=== PATIENT | male | born 1950 | race Caucasian/White ===

== ENCOUNTER 2021-07-28 10:24 | Emergency (ER) | payer MEDICARE ==
[~2021-07-28] VITALS: Ht 180.3 cm; Wt 96.6 kg
[2021-07-28] MEDS ORDERED: NOVOLOG100 UNIT/2 SUBQ (10:36)
[2021-07-28] MEDS ORDERED: LEVEMIR FL100 UNIT/2 SUBQ (10:36)
[2021-07-28] MEDS ORDERED: KEPPRA1000 MG PO (10:37)
[2021-07-28] MEDS ORDERED: ATORVASTATIN CA80 MG PO (10:37)
[2021-07-28] MEDS ORDERED: ARICEPT10 M1 PO (10:37)
[2021-07-28] MEDS ORDERED: NORVASC10 MG PO (10:37)
[2021-07-28] MEDS ORDERED: CARVEDILOL25 MG PO (10:37)
[2021-07-28] MEDS ORDERED: ZESTRIL40 MG PO (10:38)
[2021-07-28] MEDS ORDERED: METFORMIN HCL500 MG PO (10:38)
[2021-07-28] MEDS ORDERED: PROVERA5 MG PO (10:38)
[2021-07-28] MEDS ORDERED: VITAMIN B-121000 MC2 SUBLING (10:39)
[2021-07-28] MEDS ORDERED: KLOR-CON M2020 MEQ PO (10:39)
[2021-07-28] MEDS ORDERED: RISPERDAL0.5 MG PO (10:39)
[2021-07-28] MEDS ORDERED: FLOMAX0.4 MG PO (10:39)
[2021-07-28] MEDS ORDERED: MELATONIN3 M1 PO (10:40)
[2021-07-28] MEDS ORDERED: VITAMIN C500 M1 PO (10:40)
[2021-07-28] MEDS ORDERED: ZINC30 MG PO (10:41)
[2021-07-28] MEDS ORDERED: ASPIRIN EC325 M1 PO (10:42)
[2021-07-28] MEDS ORDERED: VITAMIN D310 MCG PO (10:42)
[2021-07-28] MEDS ORDERED: ZYRTEC10 M4 PO (10:42)
[2021-07-28 10:54] LABS: ABSOLUTE BASOPHILS 0.1 thou/uL (0.0-0.2); ABSOLUTE EOSINOPHILS 0.2 thou/uL (0.0-0.7); ABSOLUTE MONOCYTES 0.7 thou/uL (0.0-1.2); ABSOLUTE NEUTROPHILS 4.9 thou/uL (1.6-8.1); BASOPHILS 0.8 %; EOSINOPHILS 2.6 %; HEMATOCRIT 38.9 % (42.0-52.0); HEMOGLOBIN 13.4 gm/dL (14.0-18.0); LYMPHOCYTES 25.5 %; MCH 29.2 pg (26.0-34.0); MCHC 34.5 g/dL (28.0-37.0); MCV 84.5 fL (80.0-100.0); MONOCYTES 8.6 %; MPV 7.7 fl. (7.2-11.1); NUCLEATED RBCS 0 /100WBC; PLATELET COUNT* 322 thou/uL (150-400); POLYS 62.5 %; RBC 4.61 mil/uL (4.50-6.00); RDW-CV 12.8 % (10.5-14.5); WBC 7.8 thou/uL (4.0-11.0)
[2021-07-28 11:06] LABS: CALCIUM 8.4 mg/dL (8.5-10.1); POTASSIUM 3.3 mmol/L (3.5-5.1)
[2021-07-28 11:15] LABS: ALBUMIN 2.9 g/dL (3.4-5.0); TOTAL BILIRUBIN 0.8 mg/dL (<0.1-1.0); TOTAL PROTEIN 6.8 g/dL (6.4-8.2)
[2021-07-28 11:18] LABS: URINE BILIRUBIN NEGATIVE (Negative); URINE BLOOD TRACE (Negative); URINE CLARITY CLEAR; URINE COLOR YELLOW; URINE GLUCOSE-RANDOM NEGATIVE (Negative); URINE KETONES NEGATIVE (Negative); URINE LEUKOCYTES-REFLEX NEGATIVE (Negative); URINE NITRITE-REFLEX NEGATIVE (Negative); URINE PROTEIN TRACE (Negative); URINE SPECIFIC GRAVITY >= 1.030 (1.005-1.030); URINE UROBILINOGEN 0.2 E.U./dl (0.2-1.0)
[2021-07-28 14:29] VITALS: BP 137/75
--- NOTE | 2021-07-29 13:42 | EKG ---
[place] [address] ELECTROCARDIOGRAM REPORT Name: AMRIT VELOZ Room: [facility]#: [id number] Admission: 07/28/21 Attend Phys: Discharge: 07/28/21 Date of : 54 Date of Service: 07/28/21 1105 Report #: [id number] THIS REPORT FOR: //name// [facility] ED Test Date: 2021-07-28 Test Time: 11:05:09 Pat Name: AMRIT VELOZ Department: Room: Gender: Manufacturing Sr Engineer: [facility] [place] : 1950 Requested By: Sulaiman Alvarado Order Number: [id number] MD: Justin Gonzalez Measurements Intervals [place] Rate: 69 P: 50 [place]: 163 QRS: -8 QRSD: 90 T: 77 QT: 490 QTc: 525 Interpretive Statements Sinus rhythm Prolonged QT interval Baseline wander in lead(s) V2 No previous ECG available for comparison Electronically Signed On 07-29-2021 13:42:28 ARMATURE BANDER by Justin Gonzalez [email or web address] <ELECTRONICALLY SIGNED> By: Justin Gonzalez MD, [facility] 07/29/21 1342 1105 1105 Justin Gonzalez MD, FAC /EPI
== END 2021-07-28 14:30 | disposition home or self-care (01) ==
LOC: M.ERS 10:24
PROVIDERS: Family Medicine
DX: R53.1 Weakness (principal); Z20.822 Contact with and (suspected) exposure to COVID-19; Z88.8 Allergy status to other drugs, medicaments and biological substances; Z79.82 Long term (current) use of aspirin; Z79.899 Other long term (current) drug therapy